=== PATIENT | male | born 1960 | race Caucasian/White ===

== ENCOUNTER 2024-05-05 09:29 | Emergency (ER) | payer OTHER, SELFPAY ==
[2024-05-05 09:32] VITALS: BP 171/86
--- NOTE | 2024-05-05 12:04 | ED.GENMED ---
History of Present Illness
<Chasidy Ann PA-C - Last Filed: 05/05/24 22:20>
General
Chief Complaint: Skin Problem
Source: patient
Exam Limitations: none
Time Seen by Provider: 05/05/24 11:58
Nursing documentation reviewed up to this point in time: agreed with
History of Present Illness
History of Present Illness:
Patient is 64-year-old male with history CAD s/p stents on Brilinta presenting to the emergency department for evaluation of bleeding lesion on face. Patient states that yesterday he had a shave biopsy performed at his [facility] workflow [facility] around noon. A
pressure dressing was placed. Patient states when he woke up this morning the dressing was saturated with blood and dripping down his face. Patient unable to get bleeding lesion to stop at home prompting visit to emergency department.
Patient denies any significant pain. No shortness of breath, dizziness, chest pain.
No other concerns today.
Review of Systems
<Chasidy Ann PA-C - Last Filed: 05/05/24 22:20>
Review of Systems
Allergies reviewed?: Yes
All Other Systems: ROS reviewed and negative except as documented in HPI and ROS
Phy Exam
<Chasidy Ann PA-C - Last Filed: 05/05/24 22:20>
Physical Exam
Physical Exam:
Vitals: Hypertensive, otherwise stable vital signs. Afebrile
General: Patient is well appearing, no acute distress
Skin: Small superficial lesion/abrasion on right cheek slowly oozing blood. No pulsatile bleeding. No purulent drainage, red streaking.
Head: Normocephalic, atraumatic
Throat: Protecting airway
Neck: Normal ROM, no cervical spine tenderness
Cardiac: Regular rate
Pulm: No apparent respiratory distress
Abdomen: Nondistended
Extremities: No evidence of cyanosis or edema
Neuro: Grossly intact
Psychiatric: Normal affect.
Course
<Chasidy Ann PA-C - Last Filed: 05/05/24 22:20>
Vital Signs
Initial and Last Documented VS:
Initial Vital Signs
Temp Pulse Resp BP Pulse Ox
98 F 54 16 171/86 98
05/05/24 09:32 05/05/24 09:32 05/05/24 09:32 05/05/24 09:32 05/05/24 09:32
Last Documented Vital Signs
Temp Pulse Resp BP Pulse Ox
98 F 49 18 146/77 98
05/05/24 09:32 05/05/24 13:25 05/05/24 13:25 05/05/24 13:25 05/05/24 13:25
<Justin Feng MD - Last Filed: 05/05/24 12:27>
Vital Signs
Initial and Last Documented VS:
Initial Vital Signs
Temp Pulse Resp BP Pulse Ox
98 F 54 16 171/86 98
05/05/24 09:32 05/05/24 09:32 05/05/24 09:32 05/05/24 09:32 05/05/24 09:32
Last Documented Vital Signs
Temp Pulse Resp BP Pulse Ox
98 F 49 18 146/77 98
05/05/24 09:32 05/05/24 13:25 05/05/24 13:25 05/05/24 13:25 05/05/24 13:25
<Chasidy Ann PA-C - Last Filed: 05/05/24 22:20>
MDM/Problems Addressed
Differential Diagnosis Includes:
Not limited to: Wound/abrasion, skin CA, arterial bleeding, etc
MDM/Problems Addressed:
64-year-old male on Brilinta presenting with persistent bleeding from shave biopsy site on right cheek. Biopsy performed yesterday. No fevers, chills, shortness of breath, or lightheadedness. Exam as above. Minimal oozing from shave biopsy in
her right cheek. No pulsatile bleeding. No signs of surrounding cellulitis. Unable to obtain hemostasis with direct pressure. Did inject a small amount of lidocaine with epinephrine intradermally. Silver nitrate was applied topically and
Surgicel dressing applied to wound which achieved hemostasis. Patient was monitored in the emergency department for over 30 minutes. No evidence of oozing through dressing. Pressure dressing was placed. Patient stable for discharge with
dermatology follow-up. Return precautions discussed.
Chronic conditions affecting care:
Hypertension
Acute Exacerbation and/or Progression of Chronic Illness:
Acutely hypertensive
<Chasidy Ann PA-C - Last Filed: 05/05/24 22:20>
*Pulse Oximetry
Patient hypoxic: no
*EKG
Interpreted by ED Provider?: NA
*Maritime Engineer Interpretation
Rate: Maritime Engineer- N/A
*Critical Care Note
Total Time (30-74mins, 75-104mins- exclusive of procedures): Not Applicable
ED Attending Note
<Chasidy Ann PA-C - Last Filed: 05/05/24 22:20>
-
Portions of this chart may have been created with voice recognition software.� Occasional wrong word or��sound alike� substitutions may have occurred due to the inherent limitations of voice recognition software.
<Justin Feng MD - Last Filed: 05/05/24 12:27>
ED Attending Note
Patient seen and examined by attending physician: Yes
ED Attending Note:
I have seen and evaluated the patient with a [id number] encounter. I have spoken to the advance practicer provider and involved in the medical history, the physical exam, medical decision making.
Evaluation and management service: agree unless noted differently below.
Results interpretation: agree unless noted differently below.
Focused HPI: 64-year-old male with history as documented notable for stents on Brilinta presents to the ER for evaluation of bleeding from shave biopsy site on his face. He had a shave biopsy of a spot on his face (right cheek) yesterday by
[facility]. This morning he woke up and had soaked through his pressure dressing with blood. Came to the ER for assessment. No other issues.
Physical exam: Awake alert no distress. Hypertensive otherwise normal vitals. He has a tiny superficial abrasion/shave biopsy site on the right cheek which is steadily losing blood. No pulsatile bleeding.
Medical Decision Makin-year-old male on Brilinta presents with bleeding from shave biopsy site on his right cheek. Attempted holding direct pressure without hemostasis. We then proceeded to inject some lidocaine with epinephrine locally
applied some topical silver nitrate and then dressed with Surgicel gauze. Achieved hemostasis this way. Will monitor for rebleeding and if he remains hemostatic discharge.
Discharge Plan
Departure
Patient Disposition: Home (Routine Discharge)
Date of Disposition: 05/05/24
Time of Disposition: 13:08
Patient with high blood pressure during this ER visit?: Yes
Condition: Good
Covid-19: Not Applicable
Discharge Problem:
Wound of right cheek
Instructions: Wound Care (DC), BLOOD PRESSURE
Referrals:
Howard Engle MD [Family Provider] -
Activity Restrictions/Additional Instructions:
RETURN TO THE EMERGENCY DEPARTMENT WITH ANY BLEEDING THAT WILL NOT STOP AT HOME, SIGNIFICANT LIGHTHEADEDNESS OR SHORTNESS OF BREATH, OR ANY SIGNS OF WOUND INFECTION INCLUDING PURULENT DRAINAGE FROM RIGHT WOUND, RED STREAKING AWAY FROM WOUND,
WORSENING REDNESS OR PAIN, OR ANY OTHER CONCERNS
-As discussed that you should keep the current pressure bandage on for the next 24 hours. Then continue your wound care instructions as recommended by your [facility]. Keep wound clean and dry. You can apply Aquaphor to healing wound site, as
well. Monitor for any signs of infection.
-Continue to take medications as prescribed.
-Follow-up with your [facility] [employer] [facility] as scheduled for further evaluation/management of biopsy site
Monitor your symptoms closely and return to the emergency department with any acute worsening/new symptoms or any other concerns
Interventions
Interventions:
*Risk Screen - Suicide Last Done: 05/05/24 09:32
*General Assessment Last Done: 05/05/24 09:32
*Neglect/Abuse Screening Last Done: 05/05/24 09:32
*Nursing Disposition Last Done: 05/05/24 13:35
ED-Skin Assessment Last Done: 05/05/24 11:37
Discharge Date and Time
Discharge Date/Time: 05/05/24 13:35
Print Language: TURKISH
[2024-05-05 13:25] VITALS: BP 146/77
== END 2024-05-05 13:35 | disposition home or self-care (01) ==
LOC: EMR 09:29
PROVIDERS: EMERGENCY PHYSICIAN Emergency Medicine; FAMILY PHYSICIAN Family Medicine
DX: L76.21 Postprocedural hemorrhage of skin and subcutaneous tissue following a dermatologic procedure (principal); Y83.8 Other surgical procedures as the cause of abnormal reaction of the patient, or of later complication, without mention of misadventure at the time of the procedure; I25.10 Atherosclerotic heart disease of native coronary artery without angina pectoris; I10 Essential (primary) hypertension; E11.9 Type 2 diabetes mellitus without complications; E78.00 Pure hypercholesterolemia, unspecified; M43.22 Fusion of spine, cervical region; Z95.5 Presence of coronary angioplasty implant and graft; Z79.02 Long term (current) use of antithrombotics/antiplatelets
CPT/HCPCS: 99283